=== PATIENT | male | born 1970 | race Caucasian/White ===

== ENCOUNTER 2023-06-17 10:04 | Day surgery (SDC) | payer OTHER ==
[~2023-06-17] VITALS: Ht 170.2 cm; Wt 70.3 kg
[2023-06-17] MEDS ORDERED: LIDOCAINE 2% 100 MG/5 ML UJET TP ONE (11:36)
[2023-06-17] MEDS ORDERED: fentaNYL citrate 0.05 MG/ML VIAL ONE (11:36)
[2023-06-17] MEDS ORDERED: fentaNYL citrate 0.05 MG/ML VIAL IVP ONE (15:00)
== END 2023-06-17 12:47 | disposition home or self-care (01) ==
LOC: MDS 10:04 → MMU 10:32 → MDS 12:47
PROVIDERS: ATTEND Internal Medicine Gastroenterology
DX: Z12.11 Encounter for screening for malignant neoplasm of colon (principal); K63.5 Polyp of colon; K21.9 Gastro-esophageal reflux disease without esophagitis; I10 Essential (primary) hypertension; E78.5 Hyperlipidemia, unspecified; F17.210 Nicotine dependence, cigarettes, uncomplicated; Z79.899 Other long term (current) drug therapy
CPT/HCPCS: 45385; 82948; J3010